=== PATIENT | female | born 1955 | race Caucasian/White ===

== ENCOUNTER → 2017-04-12 | Outpatient (CLI) | payer OTHER ==
[~2017-04-12] MED LIST: ACIDTAB4 PO; ALBU1AER5 PO; ALEN70TA39 PO; ASPI81TA82 PO; ATOR40TA PO; B COTAB7 PO; CALC1TAB23 PO; CLEAPOW6 PO; FOLI1TAB PO; GABA300C3 PO; IOHEXOL 350 MG/ML 10 ML VIAL (for RAD DIAG) IVCONTRAST ONE; METO25 PO; PLAV75TA PO; PROT40TA PO; SYMB80AE INH; TAB-TAB PO; VITA250L PO
--- NOTE | 2017-04-12 15:34 | RADRPT ---
EXAM DATE/TIME: 04/12/2017 15:06 [facility] COMPARISON: No previous studies available for comparison. 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 IV CONTRAST: 82 cc Omnipaque 350 (iohexol) IV ORAL CONTRAST: Prescribed oral contrast ingested. RADIATION DOSE: 5.79 CTDIvol (mGy) ; Combined studies - Thorax/Abdomen/Pelvis MEDICAL HISTORY : Squamous cell cancer. SURGICAL HISTORY : Right foot sx. ENCOUNTER: Initial ACUITY: 1 day PAIN SCALE: 0/10 LOCATION: Bilateral lower quadrant TECHNIQUE: Volumetric scanning of the abdomen and pelvis was performed. Using automated exposure control and ad justment of the mA and/or kV according to patient size, radiation dose was kept as low as reasonably achievable to obtain optimal diagnostic quality images. DICOM format image data is available electro nically for review and comparison. FINDINGS: LOWER LUNGS: The visualized lower lungs are clear. LIVER: Homogeneous density without lesion. There is no dilation of the biliary tree. No calcified gallston es. SPLEEN: Normal size without lesion. PANCREAS: Within normal limits. KIDNEYS: Normal in size and shape. There is no mass, stone or hydronephrosis. ADRENAL GLANDS: Within normal limits. VASCULAR: Infrarenal abdominal aortic aneurysm measures 3.9 x 3 point either centimeters in span to the cranioc audal projection 7.3 cm. Intramural thrombus noted. Stents are seen within the common iliac arteries. . BOWEL/MESENTERY: The stomach, small bowel, and colon demonstrate no acute abnormality. There is no free intraperitone al air or fluid. ABDOMINAL WALL: Within normal limits. RETROPERITONEUM: There is no lymphadenopathy. BLADDER: No wall thickening or mass. REPRODUCTIVE: Within normal limits. INGUINAL: There is no lymphadenopathy or hernia. MUSCULOSKELETAL: Within normal limits for patient age. CONCLUSION: 1. Infrarenal abdominal aortic aneurysm measuring 3.9 x 3.5 cm. 2. No evidence for metastatic disease. Yves Kaba MD on April 12, 2017 at 15:30 Board Certified Radiologist. This report was verified electronically.
--- NOTE | 2017-04-12 15:40 | RADRPT ---
EXAM DATE/TIME: 04/12/2017 15:06 [facility] COMPARISON: No previous studies available for comparison. 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 IV CONTRAST: 82 cc Omnipaque 350 (iohexol) IV RADIATION DOSE: 5.79 CTDIvol (mGy) ; Combined studies - Thorax/Abdomen/Pelvis MEDICAL HISTORY : Squamous cell cancer. SURGICAL HISTORY : Right foot sx. ENCOUNTER: Initial ACUITY: 1 day PAIN SCALE: 0/10 LOCATION: Bilateral chest TECHNIQUE: Volumetric scanning of the chest was performed. Using automated exposure control and adjustment of t he mA and/or kV according to patient size, radiation dose was kept as low as reasonably achievable to obtain optimal diagnostic quality images. DICOM format image data is available electronically for review and comparison. Follow-up recommendations for detected pulmonary nodules are based at a minimum on nodule size and pa tient risk factors according to Fleischner Society Guidelines. FINDINGS: LUNGS: There is no consolidation or pneumothorax. No concerning pulmonary nodule is visualized. PLEURA: There is no pleural thickening or pleural effusion. MEDIASTINUM: The heart and great vessels demonstrate no acute abnormality. There is no mediastinal or hilar lymph adenopathy. Extensive atherosclerotic changes in mild narrowing of the left subclavian artery. Mild p rominence of the main pulmonary trunk. AXILLAE: Within normal limits. No lymphadenopathy. SKELETAL: Within normal limits for patient age. MISCELLANEOUS: The visualized upper abdominal organs demonstrate no acute abnormality. CONCLUSION: 1. No evidence for metastatic disease. 2. Mild narrowing of the left subclavian artery. Yves Kaba MD on April 12, 2017 at 15:32 Board Certified Radiologist. This report was verified electronically.
== END ==
LOC: HRAD 12:57
PROVIDERS: ATTEND Internal Medicine Medical Oncology
DX: C44.792 Other specified malignant neoplasm of skin of right lower limb, including hip (principal)
CPT/HCPCS: 71260; 74177; Q9967